=== PATIENT | male | born 1980 | race Hispanic/Latino ===

== ENCOUNTER 2017-08-19 03:59 | Emergency (ER) | payer SELFPAY ==
[2017-08-19] MEDS ORDERED: Mag-Al Plus 1200 MG/1200 MG/120 MG/30 ML UDCUP ONE (04:28)
[2017-08-19] MEDS ORDERED: Donnatal Elixir 16.2 MG/5 ML UDCUP ONE ×2 (04:28→14:14)
[2017-08-19] MEDS ORDERED: Lidocaine Viscous Sol 2% 15 ml UD Cup ONE (04:28)
== END 2017-08-19 04:38 | disposition home or self-care (01) ==
LOC: MADERS 03:59
DX: K29.00 Acute gastritis without bleeding (principal); F17.210 Nicotine dependence, cigarettes, uncomplicated
CPT/HCPCS: 99283